=== PATIENT | male | born 1940 | race Caucasian/White ===

== ENCOUNTER 2021-08-16 13:21 | Outpatient (CLI) | payer OTHER, SELFPAY | END 2021-08-16 13:22 | disposition home or self-care (01) | LOC: WOUND 13:24 | PROVIDERS: Family Provider Internal Medicine; Visit Provider Nurse Practitioner Family | DX: L03.115 Cellulitis of right lower limb (principal); Z87.891 Personal history of nicotine dependence | CPT/HCPCS: 11042; A6197; G0463 ==

== ENCOUNTER 2021-08-18 08:06 | Outpatient (CLI) | payer OTHER, SELFPAY | END 2021-08-18 08:07 | disposition home or self-care (01) | LOC: WOUND 08:07 | PROVIDERS: Family Provider Internal Medicine; Visit Provider Nurse Practitioner Family | DX: L03.115 Cellulitis of right lower limb (principal); M79.661 Pain in right lower leg; M79.662 Pain in left lower leg | CPT/HCPCS: 29581 ==

== ENCOUNTER 2021-08-26 09:51 | Outpatient (CLI) | payer OTHER, SELFPAY | END 2021-08-26 09:52 | disposition home or self-care (01) | LOC: WOUND 09:52 | PROVIDERS: Family Provider Internal Medicine; Visit Provider Emergency Medicine | DX: I96 Gangrene, not elsewhere classified (principal); L03.115 Cellulitis of right lower limb; Z87.891 Personal history of nicotine dependence | CPT/HCPCS: 11042 ==

== ENCOUNTER 2021-09-06 14:25 | Outpatient (CLI) | payer OTHER, SELFPAY | END 2021-09-06 14:26 | disposition home or self-care (01) | LOC: WOUND 14:25 | PROVIDERS: Family Provider Internal Medicine; Visit Provider Nurse Practitioner Family | DX: L03.115 Cellulitis of right lower limb (principal); Z87.891 Personal history of nicotine dependence | CPT/HCPCS: 11042 ==

== ENCOUNTER 2021-09-14 13:00 | Outpatient (CLI) | payer OTHER, SELFPAY | END 2021-09-14 13:01 | disposition home or self-care (01) | LOC: WOUND 13:01 | PROVIDERS: Family Provider Internal Medicine; Visit Provider Emergency Medicine | DX: I87.2 Venous insufficiency (chronic) (peripheral) (principal); L97.812 Non-pressure chronic ulcer of other part of right lower leg with fat layer exposed; L03.115 Cellulitis of right lower limb; Z87.891 Personal history of nicotine dependence | CPT/HCPCS: 11042 ==

== ENCOUNTER 2021-09-21 09:44 | Outpatient (CLI) | payer OTHER, SELFPAY | END 2021-09-21 09:45 | disposition home or self-care (01) | LOC: WOUND 09:45 | PROVIDERS: Family Provider Internal Medicine; Visit Provider Emergency Medicine | DX: I96 Gangrene, not elsewhere classified (principal); L03.115 Cellulitis of right lower limb; M79.662 Pain in left lower leg; M79.661 Pain in right lower leg | CPT/HCPCS: 11042 ==

== ENCOUNTER 2021-09-24 09:27 | Outpatient (CLI) | payer OTHER, SELFPAY ==
--- NOTE | 2021-09-24 09:38 | USCV_ITS ---
Kirit Maki Age: 81 Gender: M : 1940 Exam Date: 09/24/2021 09:27 Ordering Phys: Josette Napoles Technologist: Jorge Avila Manager Of Network [place] [facility] [place] LEG ULCERS RIGHT LEFT Brachial 125.00 mmHg Brachial 131.00 mmHg Pressure (mmHg) Waveform Pressure (mmHg) Waveform FRONT DESK ADMINISTRATOR 225.00 DPA 225.00 FINDINGS COULD NOT DO RT SIDE BECAUSE OF LEG AND FOOT WRAP Supranormal resting ALBERTA on the left side CONCLUSIONS ABIs not obtained on the right side because of technical issues Noncompressible vessels on the left side, suggesting extensive arterial sclerosis Consider TBI, if clinically indicated Dr Alexander Dinh MD [facility] (Electronically Signed) Final Date: 11 October 2021 13:59 S
== END 2021-09-24 09:28 | disposition home or self-care (01) ==
LOC: RAD 09:34
PROVIDERS: PCP Internal Medicine; Visit Provider Nurse Practitioner Family
DX: L03.115 Cellulitis of right lower limb (principal); M79.661 Pain in right lower leg; M79.662 Pain in left lower leg
CPT/HCPCS: 93922

== ENCOUNTER 2021-09-28 10:24 | Outpatient (CLI) | payer OTHER, SELFPAY | END 2021-09-28 10:25 | disposition home or self-care (01) | LOC: WOUND 10:25 | PROVIDERS: PCP Internal Medicine; Visit Provider Emergency Medicine | DX: Z09 Encounter for follow-up examination after completed treatment for conditions other than malignant neoplasm (principal); Z87.891 Personal history of nicotine dependence | CPT/HCPCS: 99212 ==

== ENCOUNTER 2021-10-19 12:18 | Outpatient (CLI) | payer OTHER, SELFPAY ==
--- NOTE | 2021-10-19 12:32 | USCV_ITS ---
Kirit Maki Age: 81 Gender: M : 1940 Exam Date: 10/19/2021 12:40 Ordering Phys: Josette Napoles Technologist: Exam Location: [facility] [place] Indication: HISTORY: RT LEG GSAPH HARVESTED FOR CABG PROCEDURES: Bilateral duplex Venous Insufficiency study of the Deep and Superficial systems was carried out according to normal protocol with the patient in supine positon for deep system and dependent position for the superficial system. Bilateral duplex Venous Insufficiency study of the Deep and Superficial systems was carried out according to normal protocol with the patient in supine positon for deep system and dependent position for the superficial system. FINDINGS: All deep veins demonstrated compressibility without evidence of intraluminal thrombus or increased echogenicity. Spectral analysis of Doppler signals demonstrates normal response to compression maneuvers indicating patency without obstruction. Reflux determinations were made with the patient in the dependent position, the weight being on the contralateral leg. THERE IS VERY LITTLE GREAT SAPH LT ON THE RT LEG. . LT LEG IS NORMAL CONCLUSIONS No evidence of DVT in the above-mentioned identifiable veins. There is some venous reflux in the right common femoral vein of less than 1000 ms. No significant reflux were noted in the superficial veins. 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 Dr Alexander Dinh MD [facility] (Electronically Signed) Final Date: 20 October 2021 10:05 S
== END 2021-10-19 12:19 | disposition home or self-care (01) ==
LOC: RAD 12:18
PROVIDERS: PCP Internal Medicine; Visit Provider Nurse Practitioner Family
DX: L03.115 Cellulitis of right lower limb (principal); M79.661 Pain in right lower leg; M79.662 Pain in left lower leg
CPT/HCPCS: 93970

== ENCOUNTER → 2022-07-06 10:19 | Outpatient (BNVA) | payer OTHER, SELFPAY | PROVIDERS: PCP Internal Medicine; Referring Provider Family Medicine; Visit Provider Specialist | DX: M25.511 Pain in right shoulder (principal); Z96.611 Presence of right artificial shoulder joint | CPT/HCPCS: 73030; 99204 ==